=== PATIENT | female | born 1970 | race Caucasian/White ===

== ENCOUNTER → 2024-01-27 11:19 | Outpatient (REF) | payer OTHER, SELFPAY | LOC: WDC 11:19 | PROVIDERS: ATTENDING PHYSICIAN Nurse Practitioner | DX: Z12.31 Encounter for screening mammogram for malignant neoplasm of breast (principal) | CPT/HCPCS: 77063; 77067 ==

== ENCOUNTER → 2025-02-01 10:42 | Outpatient (REF) | payer OTHER, SELFPAY | LOC: WDC 10:42 | PROVIDERS: ATTENDING PHYSICIAN Hospitalist | DX: Z12.31 Encounter for screening mammogram for malignant neoplasm of breast (principal) | CPT/HCPCS: 77063; 77067 ==